=== PATIENT | female | born 1965 | race Caucasian/White ===

== ENCOUNTER 2017-02-17 10:13 | Emergency (ER) | payer OTHER ==
[~2017-02-17] VITALS: Ht 167.6 cm; Wt 75.5 kg
[2017-02-17 12:32] VITALS: BP 134/78
== END 2017-02-17 12:56 | disposition home or self-care (01) ==
LOC: ED 10:13
DX: T18.2XXA Foreign body in stomach, initial encounter (principal); T17.228A Food in pharynx causing other injury, initial encounter; Z79.899 Other long term (current) drug therapy; Z79.82 Long term (current) use of aspirin; X58.XXXA Exposure to other specified factors, initial encounter; Y93.89 Activity, other specified; Y92.89 Other specified places as the place of occurrence of the external cause; Y99.8 Other external cause status